=== PATIENT | female | born 1995 | race Two or more races ===

== ENCOUNTER 2016-09-01 19:14 | Emergency (ER) | payer BC ==
--- NOTE | 2016-09-01 19:50 | EDM.PDOC ---
ED HPI GENERAL MEDICAL PROBLEM - General Chief Complaint: General Stated Complaint: TOOTHACHE Time Seen by Provider: 09/01/16 19:19 Source of Information: Reports: Patient History Limitations: Reports: No Limitations - History of Present Illness INITIAL COMMENTS - FREE TEXT/NARRATIVE: Presents reporting mouth sores. The patient states that she has an abscessed left upper tooth. One of the pus pockets broke open. She also has multiple ulcers on her cheeks and in the back of her throat which makes it hard for her to swallow and eat. She has a dental appointment scheduled for Tuesday, September 06, 2016. Left Upper Dental Pain Score (Numeric/FACES): 10 - Related Data Allergies Allergy/AdvReac Type Severity Reaction Status Date / Time No Known Allergies Allergy Verified 09/01/16 19:26 Home Meds: Home Meds . [No Known Home Meds] 09/01/16 [History] ED ROS GENERAL - Review of Systems Review Of Systems: See Below Constitutional: Denies: Fever, Chills ED EXAM, GENERAL - Physical Exam Exam: See Below Exam Limited By: No Limitations General Appearance: Alert, No Apparent Distress Ears: Normal External Exam Nose: Normal Inspection Throat/Mouth: Other (Vesicular lesions over the anterior pharynx and sores on the buccal surfaces, tooth #14 with a deep caries) Head: Atraumatic, Normocephalic Neck: Normal Inspection Respiratory/Chest: No Respiratory Distress, Lungs Clear, Normal Breath Sounds Cardiovascular: Normal Peripheral Pulses, Regular Rate, Rhythm GI/Abdominal: Soft Extremities: Normal Inspection Neurological: Alert, Oriented Psychiatric: Normal Affect, Normal Mood Skin Exam: Warm, Dry, Intact, Normal Color, No Rash Lymphatic: No Adenopathy Course - Vital Signs Last Recorded V/S: Last Vital Signs Temp 36.4 C 09/01/16 19:26 Pulse 94 09/01/16 19:26 Resp 18 09/01/16 19:26 BP 129/70 09/01/16 19:26 Pulse Ox 99 09/01/16 19:26 Departure - Departure Time of Disposition: 19:52 Disposition: Home, Self-Care 01 Condition: good Clinical Impression: Herpangina, Dental abscess - Discharge Information Referrals: PCP,None [Primary Care Provider] - [facility] [Outside] [facility] [Outside] Forms: ED Department Discharge Additional Instructions: 1. followup with your dentist as previously scheduled 2. Magic mouthwash 10 cc every 4 hours gargle swish and swallow 3. antibiotic 3 times a day 4. cool fluids and soft foods, avoid spicy salty and acidic foods
[2016-09-01] MEDS ORDERED: Lidocaine 2% Viscous Solution 100 ML Bottle PO ONE ×2 (19:56→20:06)
[2016-09-01] MEDS ORDERED: diphenhydrAMINE 12.5 MG/5 ML Liquid 5 ML UD Cup PO ONE (19:58)
[2016-09-01] MEDS ORDERED: prednisoLONE Soln 15 MG/5 ML UD Cup PO ONE (19:59)
[2016-09-01] MEDS ORDERED: Lidocaine 2% Viscous Solution 15 ML Cup PO ONE (20:05)
[2016-09-01 20:50] VITALS: BP 133/74
== END 2016-09-01 20:50 | disposition home or self-care (01) ==
LOC: MW.ED 19:14
DX: B08.5 Enteroviral vesicular pharyngitis (principal); K04.7 Periapical abscess without sinus
CPT/HCPCS: 99282; A9270; 99283